=== PATIENT | female | born 1995 | race Caucasian/White ===

== ENCOUNTER 2016-07-09 16:40 | Outpatient (CLI) | payer OTHER ==
[~2016-07-09] VITALS: Ht 162.6 cm; Wt 62.9 kg
[2016-07-09 16:44] VITALS: Ht 162.6 cm; Wt 62.9 kg
[2016-07-09 16:55] VITALS: BP 113/65; PULSE 67; RESP 18
[2016-07-09] MEDS ORDERED: PRENAT PO (16:55)
--- NOTE | 2016-07-09 18:25 | CONS ---
Date/Time of Note Date/Time of Note DATE: 07/09/16 TIME: 18:15 Consultation Date/Type/Reason Admit Date/Time Initial Consult Date July 09, 2016 Triage consult Reason for Consultation This patient is a 21 years old 3 para 2 who had both her deliveries in the past by section her due date is July 18 which makes her 38 weeks and 5 days. Her main complaint is occasional abdominal back pain started about 3 hours ago 24 HR Interval Summary Free Text/Dictation On examination she is a well-developed well-nourished lady term with possible early labor and vital signs are normal blood pressure 113/65 , pulse rate 67, temperature 90 7. This patient was kept in the triage area for about an hour to rule out possible early labor, however due to increased contractions we will keep her here in case of active contraction she will have her repeat section She had her lunch at 2:00 in the afternoon today. Constitutional: No chills, No diaphoresis, No disoriented, No febrile, No improved, No no complaints, No other, No poor po, No requiring IVF, No requiring O2 Detailed Summary Eyes: No discharge, No no complaints, No other, No pain, No redness, No visual change ENT: No bleeding, No congestion, No discharge, No dysphagia, No no complaints, No other, No pain, No sore throat Respiratory: No cough, No no complaints, No other, No pain, No pleuritic pain, No shortness of breath, No sputum, No wheezing Cardiovascular: No chest pain, No edema, No lightheadedness, No no complaints, No orthopenea, No other, No palpitations, No paroxysmal nocturnal dyspnea Gastrointestinal: No blood, No constipation, No decreased appetite, No diarrhea , No flatus, No nausea, No no complaints, No other, No pain, No passing stool, No vomiting Genitourinary: other (uterine contractions. On pelvic exam cervix is soft closed in about 3-3-1/2 cm in length no evidence of ruptured membranes) Musculoskeletal: No back pain, No bone/joint pain, No neck pain, No no complaints, No other, No restricted range of motion, No swelling Skin: No bruising, No erythema, No laceration, No no complaints, No other, No pruritis, No rash, No skin lesions Endocrine: No dry skin, No no complaints, No other, No polydypsia, No polyuria , No temp intolerance Lymphatic: No adenopathy, No lymphadema, No no complaints, No other, No tender nodes Psychological: No anxiety, No confusion, No depression, No nl mood/affect, No no complaints, No other, No suicidal Immunologic: No immunodeficiency, No no complaints, No other, No pruritis, No rhinitis, No urticaria Additional Comments Plan: As mentioned we will keep her in the hospital and give her hydration if goes into active labor she will have a repeat section Exam/Review of Systems Vital Signs Vitals Vital Signs Date Time Temp Pulse Resp B/P Pulse Ox O2 Delivery O2 Flow Rate FiO2 07/09/16 16:55 97.9 67 18 113/65 Room Air Medications Medications Current Medications Lactated Ringer's 500 ml @ 500 mls/hr Q1H ONCE IV ; Start 07/09/16 at 18:30; Stop 07/09/16 at 19:29 Lactated Ringer's (Lr) 1,000 ml @ 125 mls/hr Q8H IV ; Start 07/09/16 at 18:30 ERASMO WHITTINGTON MD Jul 09, 2016 18:25 ERASMO WHITTINGTON MD Jul 09, 2016 18:25
[2016-07-09] MEDS ORDERED: LACTATED RINGER'S 1,000 ML IV SCH (18:30)
[2016-07-09] MEDS ORDERED: LACTATED RINGER'S 500 ML IV ONE (18:30)
--- NOTE | 2016-07-09 20:29 | QN ---
Documentation Comment Laborist 21yo at 38+5 by poor dating w/hx of C/S x2 who presented with painful UCs. In to see pt in Triage s/p IV Hydration. UCs have spaced considerably, approximately every 11-15 min, sometimes 20 min apart. Pt states they are less uncomfortable, now /10. SVE unchanged over 2+hrs (1715-> 1945): cl/long/high/posterior FHT reviewed and Category 1 w/baseline 120s, mod chris, +accels, no decels. Given unchanged cervical exam and spacing of UCs, unlikely pt is in labor. Will d/c pt home with continued outpatient follow-up- next appointment is scheduled on 07/11/16. Strict labor, ROM and FKC precautions reviewed Questions answered to patient's satisfaction LUIS SR MD Jul 09, 2016 20:29
--- NOTE | 2016-07-09 20:35 | TRIAGE ---
OB Triage Datetime Report Generated by CPN: 07/09/2016 20:35 Datetime: 07/09/2016 19:10 Stage of : OB Triage Labor Evaluation Frequency: 1-9 Monitor Mode: External Duration (sec)2399: 60-80 Quality: Moderate Pattern: Normal: <= 5 Contractions in 10 Minutes Resting Tone [place]: Non Relaxed Heart Rate FHR Baseline Rate: 135 Monitor Mode: External US Variability: Moderate 6-25 bpm Accelerations: 15X15 Decelerations: None Category: Category I Pain Assessment Pain Scale: 3 Pain Presence: Intermittent Pain Type: Cramping Pain Location: Abdomen Pain Relief Measures: Comfort Measures Datetime: 07/09/2016 18:38 Stage of : OB Triage Labor Evaluation Frequency: 1-1.5 Monitor Mode: External Duration (sec)2399: 60-80 Quality: Moderate Pattern: Normal: <= 5 Contractions in 10 Minutes Resting Tone [place]: Non Relaxed Heart Rate FHR Baseline Rate: 125 Monitor Mode: External US Variability: Minimal - Undetectable to <=5 bpm Accelerations: None Decelerations: None Category: Category II Pain Assessment Pain Scale: 3 Pain Presence: Intermittent Pain Type: Cramping Pain Location: Abdomen Pain Relief Measures: Comfort Measures Datetime: 07/09/2016 17:43 Labor Evaluation Frequency: 0 Monitor Mode: External Pattern: Normal: <= 5 Contractions in 10 Minutes Resting Tone [place]: Relaxed Heart Rate FHR Baseline Rate: 120 Monitor Mode: External US FHR Baseline Changes: No Baseline Change Variability: Moderate 6-25 bpm Accelerations: 15X15 Decelerations: None Category: Category I Datetime: 07/09/2016 17:35 Contraction Comments: TOCO MONTOR PART CHANGED Datetime: 07/09/2016 17:14 Vaginal Exam Dilatation (cms): 0.0 Effacement (%): 40 Station: -3 Exam By: DR FOROOHAR Datetime: 07/09/2016 17:05 Labor Evaluation Frequency: X1 Monitor Mode: External Duration (sec)2399: 80 Quality: Moderate Pattern: Normal: <= 5 Contractions in 10 Minutes Resting Tone [place]: Relaxed Heart Rate FHR Baseline Rate: 125 Monitor Mode: External US Variability: Moderate 6-25 bpm Accelerations: 15X15 Decelerations: None Category: Category I Datetime: 07/09/2016 16:51 Stage of : OB Triage Assessment Type: Triage Maternal Assessment Level of Consciousness: Fully Conscious DTR's/Clonus: DTRs 2+; No Clonus Headache: Denies Blurred Vision: No Respiratory Effort: Unlabored; Regular Rhythm; Equal Expansion Breath Sounds, Left: Clear and Equal Breath Sounds, Right: Clear and Equal Nausea/Vomiting: Denies RUQ Epigastric Pain: Denies Lower Extremities Edema: None Upper Extremities Edema: None Facial Edema: None Temperature Route: Oral Fall Risk Assessment History of Falling: (0) No Secondary Diagnosis: (0) No Ambulatory Aid: (0) Bedrest/Nurse Assist IV Therapy: (0) No Gait: (0) Normal/Bedrest/Immobile Pain Assessment Pain Scale: 5 Pain Presence: Constant Pain Type: Pressure Pain Location: Abdomen; Back Datetime: 07/09/2016 16:50 EGA: 38.5 Datetime: 07/09/2016 16:48 Time of Arrival: 07/09/2016 16:40 Arrived By: Ambulatory Arrived From: Home Chief Complaint: ABDOMINAL AND BACK PAIN; Movement: Present Contractions: Occasional Time Contractions Began: 07/07/2016 19:00 Rupture of Membranes: Denies Vaginal Bleeding: None Vaginal Discharge: Denies Recent Sexual Intercouse: Denies Abdominal Trauma: Not Applicable Patient Complaints: Back Pain Additional Patient Complaints: LOWER ABDOMINAL PRESSURE Initial Plan: EFM, UC MONITORING, IV HYDRATION
== END 2016-07-09 20:07 | disposition home or self-care (01) ==
LOC: OBT 16:40 → L-D 16:41 → OBT 20:07
PROVIDERS: ATTEND Obstetrics & Gynecology
DX: O62.9 Abnormality of forces of labor, unspecified (principal); Z3A.38 38 weeks gestation of pregnancy
CPT/HCPCS: 36415; 96360; 96361; J7120; Z7500; G0463

== ENCOUNTER 2016-07-12 12:15 | Inpatient (IN) | payer OTHER ==
[~2016-07-12] VITALS: Ht 172.7 cm; Wt 62.5 kg
[~2016-07-12 12:15] MED LIST: PRENAT PO
[2016-07-12 12:21] VITALS: Ht 172.7 cm; Wt 62.5 kg
[2016-07-12] MEDS ORDERED: LACTATED RINGER'S 1,000 ML IV SCH (12:21)
[2016-07-12] MEDS ORDERED: MISOPROSTOL 200 MCG TAB PR PRN ×2 (12:30→18:30)
[2016-07-12] MEDS ORDERED: CARBOPROST 250 MCG INJ IM PRN ×2 (12:30→18:30)
[2016-07-12] MEDS ORDERED: OXYTOCIN 30 UNITS/LR 500 ML IV SCH (12:30)
[2016-07-12] MEDS ORDERED: METHYLERGONOVINE 0.2 MG INJ IM PRN ×2 (12:30→18:30)
[2016-07-12] MEDS ORDERED: OXYTOCIN 30 UNITS/LR 500 ML IV PRN ×2 (12:30→18:30)
[2016-07-12] MEDS ORDERED: CEFAZOLIN 2 GM/50 ML (PMX) 50 ML IV SCH (12:30)
[2016-07-12 12:52] LABS: ADD SCAN DIFF NO
[2016-07-12 13:01] LABS: BASOPHILS % 0.3 % (0.0-2.0); EOSINOPHILS % 0.2 % (0.0-7.0); HEMATOCRIT 33.5 % (37.0-47.0); HEMOGLOBIN 10.7 g/dl (12.0-16.0); LYMPHOCYTES % 19.4 % (15.0-51.0); MEAN CORPUSCULAR HGB CONC 31.9 g/dl (32.0-37.0); MEAN CORPUSCULAR VOLUME 81.5 fl (82.0-101.0); MEAN PLATELET VOLUME 10.9 fl (7.4-10.4); MONOCYTE # 0.5 10^3/ul (0.3-0.9); MONOCYTES % 4.9 % (0.0-11.0); NEUTROPHIL # 7.8 10^3/ul (1.6-7.5); PLATELET COUNT 269 10^3/UL (140-415); RED BLOOD COUNT 4.11 10^6/ul (4.20-5.40); RED CELL DISTRIBUTION WIDTH 13.9 % (11.5-14.5); WHITE BLOOD COUNT 10.4 10^3/ul (4.8-10.8)
[2016-07-12] MEDS ORDERED: ONDANSETRON 4 MG INJ IV STA (13:06)
[2016-07-12] MEDS ORDERED: LACTATED RINGER'S 1,000 ML IV ONE (13:25)
[2016-07-12] MEDS ORDERED: CITRIC ACID/NA CITRATE 30 ML CUP PO ONE ×2 (13:30)
[2016-07-12] MEDS ORDERED: ONDANSETRON 4 MG INJ IV ONE (13:30)
[2016-07-12 14:08] LABS: INR 0.92; PROTIME 12.4 Sec (12.2-14.2)
[2016-07-12 14:09] LABS: PARTIAL THROMBOPLASTIN TIME 26.6 Sec (25.0-35.0)
[2016-07-12] MEDS ORDERED: morphine SULFATE/PF (10 MG/10 ML) INJ ONE (14:37)
[2016-07-12] MEDS ORDERED: FENTAnyl 50 MCG/ML VIAL ONE (14:37)
[2016-07-12] MEDS ORDERED: METOCLOPRAMIDE 10 MG INJ ONE (14:50)
[2016-07-12] MEDS ORDERED: EPHEDrine SULFATE 50 MG/5 ML SYG ONE (14:56)
[2016-07-12] MEDS ORDERED: ONDANSETRON 4 MG INJ IV PRN (15:30)
[2016-07-12] MEDS ORDERED: NALOXONE (0.4 MG/ML) INJ IV PRN (15:30)
[2016-07-12] MEDS ORDERED: HYDROmorphONE 1 MG/ML SYG IV PRN ×2 (15:30)
[2016-07-12] MEDS ORDERED: DIPHENHYDRAMINE 50 MG INJ IV PRN (15:30)
[2016-07-12] MEDS ORDERED: PROCHLORPERAZINE 10 MG INJ IV PRN (15:30)
--- NOTE | 2016-07-12 16:34 | OPR ---
DATE OF OPERATION: 07/12/2016 PREOPERATIVE DIAGNOSES: 1. Intrauterine at 39 weeks and 1 day. 2. History of 2 previous sections. 3. Request for voluntary sterilization, bilateral tubal ligation at the time of section. POSTOPERATIVE DIAGNOSES: 1. Intrauterine at 39 weeks and 1 day. 2. History of 2 previous sections. 3. Request for voluntary sterilization, bilateral tubal ligation at the time of section. PROCEDURE: Repeat transverse low cervical section, bilateral tubal ligation. SURGEON: Niurka Rai MD [facility] ARTIST: Price ANESTHESIA: Spinal. ANESTHESIOLOGY: Dr. Semaj ESPINOSA: Live baby girl, Apgars 8 and 9. Baby weighed 2955 grams. DETAILS OF THE PROCEDURE: Under satisfactory spinal anesthesia, the patient was prepped and draped and placed in supine position, tilted to the left. Pfannenstiel incision was made. Old scar was re moved. Incision carried through the subcutaneous tissue. Bleeders brought under control with elect rocautery. Fascia incised to the length of the incision. Rectus muscle divided in midline. Perito neum exposed, entered through a transverse incision. Exploration of abdomen revealed a gravid uteru s at term, normal appearing tubes and ovaries, extremely thinned out lower segment of the uterus to the thickness of 1 to 2 mm only. Bladder flap was developed. Transverse incision was made in the l ower segment of the uterus. Amniotic sac ruptured. Clear amniotic fluid noted. Live baby girl was delivered from unengaged vertex. Nasal oropharyngeal suction was performed. Baby handed to the ne onatal team for immediate attention. Patient received 20 units of Pitocin. Placenta delivered manu ally intact. Uterine cavity cleaned with wet sponge and drainage established. Uterus closed in 2 l murphy using Monocryl #1 in continuous fashion. Bilateral tubal ligation performed by identifying th e fimbria and ampullar section of the right fallopian tube. Suture material used #0 plain catgut, w as reinforced with the same suture material. A portion of the tube including the ampulla and fimbri a excised, suture material used #0 plain catgut was reinforced with the same suture material and the specimen submitted to pathology. The same procedure performed for the opposite side. Peritoneal c avity irrigated with a copious amount of sterile water. Sponge, needle and instrument reported to b e correct. Abdominal peritoneum closed with 2-0 chromic catgut continuously. Rectus muscle approxi mated with 2 interrupted 2-0 chromic catgut. Fascia closed with #1 PDS in a continuous fashion. [place] bcutaneous tissue approximated with 2-0 chromic catgut. Skin closed with adolph. Estimated blood loss 600 to 700 mL. Urine bag contained 200 mL of clear urine. Patient tolerated procedure well, t ransferred to recovery room in a good condition. Dictated By: NIURKA FAULKNER/LATESHA Conf#: [id number] DID#: [id number]
--- NOTE | 2016-07-12 16:45 | HP ---
DATE OF ADMISSION: 07/12/2016 HISTORY OF PRESENT ILLNESS: This is a 21-year-old female, 3, para 2 with history o f previous , admitted to [facility] at 39 weeks and 1 day, being prepared to undergo a repeat . Patient had also requested voluntary sterilization, bilateral tuba l ligation at the time of the section. She has signed the consent and she has been business and financial counsel ed regarding the permanency and also the failure rate and increased risk of ectopic and fu ture failure to conceive. Knowing all the facts, the patient would like to proceed with the tubal l igation at the time of her section. This patient has been under the care of the [facility] and her course was not complicated with gestational diabetes, pregnan cy-induced hypertension or any other serious surgical or medical and genetic condition. GYNECOLOGIC HISTORY: Menarche at age 11, regular period. History of a total of 3 pregnancies inclu ding the present, 2 previous sections. PAST MEDICAL HISTORY: No other hospitalization for any other serious surgical or medical condition. ALLERGIES: DENIES ALLERGY TO ANY KNOWN MEDICATION. SOCIAL HABITS: Denies smoking or drinking. REVIEW OF SYSTEMS: Within normal. PHYSICAL EXAMINATION: VITAL SIGNS: She is 5 feet 8 inches, 138 pounds. Total weight gain of the 23 pounds with blood pressure of 106/62, pulse of 65, respiration 18 and temperature 98. HEAD, EARS, NOSE AND THROAT: Negative. NECK: Supple. No thyromegaly. LUNGS: Clear to P and A. HEART: Normal sinus rhythm, no murmur. BREASTS: Status compatible with state of the . No abnormal palpable mass. No nipple retr action or discharge. No axillary adenopathy, no supraclavicular adenopathy. ABDOMEN: Measures 37 cm from symphysis pubis. heart rate category 1. PELVIC: Deferred. EXTREMITIES: No edema, no varicosities. IMPRESSION: 1. Intrauterine at 39 weeks' gestation. 2. History of previous section. 3. Request for bilateral tubal ligation. The patient is aware of the complication of the surgery, including bowel or bladder injury, infectio n, hemorrhage, hematoma, failure rate of tubal ligation, increased risk of ectopic , future failure to conceive. Knowing all these facts, the patient would like to proceed with the repeat C- section and bilateral tubal ligation. Dictated By: NIURKA FAULKNER/LATESHA Conf#: [id number] DID#: [id number]
[2016-07-12] MEDS: KETOROLAC 30 MG INJ IV PRN (17:09)
[2016-07-12] MEDS: OXYTOCIN 30 UNITS/LR 500 ML IV SCH ×2 (18:17→22:40)
[2016-07-12 18:20] VITALS: BP 110/60; PULSE 72
[2016-07-12] MEDS ORDERED: ACETAMINOPHEN/CODEINE #3 TAB PO PRN ×2 (18:30)
[2016-07-12] MEDS ORDERED: LANOLIN 7 GM TUBE TOP PRN (18:30)
[2016-07-12] MEDS ORDERED: OXYCODONE/ACETAMINOPHEN (5/325) TAB PO PRN ×2 (18:30)
[2016-07-12] MEDS ORDERED: CEFAZOLIN 1 GM/50 ML (PMX) 50 ML IVPB SCH (18:30)
[2016-07-12 19:00] VITALS: BP 117/79; PULSE 69; RESP 18
[2016-07-12 20:00] VITALS: BP 119/64; PULSE 75; RESP 20
[2016-07-12] MEDS: SENNA/DOCUSATE NA (8.6MG/50MG) TAB PO SCH (21:00)
[2016-07-13] MEDS: OXYTOCIN 30 UNITS/LR 500 ML IV SCH ×2 (02:17→06:17)
[2016-07-13 03:53] VITALS: BP 111/62; PULSE 75; RESP 20
[2016-07-13 07:41] LABS: ADD SCAN DIFF NO
[2016-07-13 07:45] VITALS: BP 116/66; PULSE 78; RESP 18
[2016-07-13 07:48] LABS: BASOPHILS % 0.1 % (0.0-2.0); EOSINOPHILS % 0.1 % (0.0-7.0); HEMOGLOBIN 8.8 g/dl (12.0-16.0); LYMPHOCYTES # 1.4 10^3/ul (0.8-2.9); LYMPHOCYTES % 15.8 % (15.0-51.0); MEAN CORPUSCULAR HEMOGLOBIN 25.7 pg (29.0-33.0); MEAN CORPUSCULAR HGB CONC 31.4 g/dl (32.0-37.0); MEAN CORPUSCULAR VOLUME 81.6 fl (82.0-101.0); MEAN PLATELET VOLUME 11.3 fl (7.4-10.4); MONOCYTE # 0.6 10^3/ul (0.3-0.9); MONOCYTES % 6.3 % (0.0-11.0); NEUTROPHILS % 77.4 % (39.0-77.0); PLATELET COUNT 208 10^3/UL (140-415); RED BLOOD COUNT 3.43 10^6/ul (4.20-5.40); RED CELL DISTRIBUTION WIDTH 14.1 % (11.5-14.5)
[2016-07-13] MEDS: SENNA/DOCUSATE NA (8.6MG/50MG) TAB PO SCH ×2 (09:22→21:28)
[2016-07-13] MEDS ORDERED: LACTATED RINGER'S 1,000 ML IV ONE (10:30)
--- NOTE | 2016-07-13 11:39 | PN ---
Date/Time of Note Date/Time of Note DATE: 07/13/16 TIME: 11:38 OB Subjective Subjective Subjective Post day 1 Afebrile vital signs stable, abdomen soft, uterus firm, lochia normal, bowel sounds present, ambulation recommended Laboratory Tests Test 07/12/16 12:30 07/12/16 13:25 07/13/16 07:00 Basophils # 0.010^3/ul 0.010^3/ul Basophils % 0.3% 0.1% Eosinophils # 0.010^3/ul 0.010^3/ul Eosinophils % 0.2% 0.1% HIV (1&2) Antibody NEGATIVE Hematocrit 33.5% 28.0% Hemoglobin 10.7g/dl 8.8g/dl Hepatitis B Surface Antigen NEGATIVE Lymphocytes # 2.010^3/ul 1.410^3/ul Lymphocytes % 19.4% 15.8% Mean Corpuscular Hemoglobin 26.0pg 25.7pg Mean Corpuscular Hemoglobin Concent 31.9g/dl 31.4g/dl Mean Corpuscular Volume 81.5fl 81.6fl Mean Platelet Volume 10.9fl 11.3fl Monocytes # 0.510^3/ul 0.610^3/ul Monocytes % 4.9% 6.3% Neutrophils # 7.810^3/ul 7.010^3/ul Neutrophils % 75.0% 77.4% Nucleated Red Blood Cells # 0.010^3/ul 0.010^3/ul Nucleated Red Blood Cells % 0.0/100WBC 0.0/100WBC Platelet Count 51625^3/UL 61529^3/UL Rapid Plasma Reagin NONREACTIVE Red Blood Count 4.1110^6/ul 3.4310^6/ul Red Cell Distribution Width 13.9% 14.1% White Blood Count 10.410^3/ul 9.010^3/ul Activated Partial Thromboplast Time 26.6Sec INR International Normalized Ratio 0.92 Prothrombin Time 12.4Sec Prothrombin Time Ratio 1.0 Current Medications Medications (Trade) Dose Ordered Sig/Chucky Route PRN Reason Start Time Stop Time Status Last Admin Dose Admin Lactated Ringer's 1,000 ml @ 125 mls/hr Q8H IV 07/12/16 12:21 07/12/16 18:20 DC 07/12/16 12:31 Cefazolin Sodium/ Dextrose 50 ml @ 100 mls/hr ONCE IV 07/12/16 12:30 07/12/16 18:20 DC Oxytocin/Lactated Ringer's 500 ml @ 125 mls/hr ONCE IV 07/12/16 12:30 07/12/16 18:20 DC 07/12/16 17:16 Oxytocin/Lactated Ringer's 500 ml @ 0 mls/hr ONCE PRN IV For Hemorrhage Management 07/12/16 12:30 07/12/16 18:20 DC Methylergonovine Maleate (Methergine) 0.2 mg ONCE PRN IM VAGINAL BLEEDING 07/12/16 12:30 07/12/16 18:20 DC Carboprost Tromethamine (Hemabate) 250 mcg ONCE PRN IM VAGINAL BLEEDING 07/12/16 12:30 07/12/16 18:20 DC Misoprostol (Cytotec) 1,000 mcg ONCE PRN [place] VAGINAL BLEEDING 07/12/16 12:30 07/12/16 18:20 DC Ondansetron HCl (Zofran Inj) 4 mg ONCE STAT IV 07/12/16 13:06 07/12/16 13:11 DC 07/12/16 13:27 Citric Acid/ Sodium Citrate 30 ml 30 ml ONCE ONCE PO 07/12/16 13:30 07/12/16 13:31 DC 07/12/16 13:27 Lactated Ringer's (Lr) 1,000 ml @ 1,000 mls/hr Q1H ONCE IV 07/12/16 13:25 07/12/16 14:24 DC Ondansetron HCl (Zofran Inj) 4 mg pre-procedure ONCE IV 07/12/16 13:30 07/12/16 13:31 DC Citric Acid/ Sodium Citrate (Bicitra) 30 ml pre-procedure ONCE PO 07/12/16 13:30 07/12/16 13:31 DC Fentanyl (Sublimaze) 100 mcg STK-MED ONCE .ROUTE 07/12/16 14:37 07/12/16 14:38 DC Morphine Sulfate (Duramorph) 10 mg STK-MED ONCE .ROUTE 07/12/16 14:37 07/12/16 14:38 DC Metoclopramide HCl (Reglan) 10 mg STK-MED ONCE .ROUTE 07/12/16 14:50 07/12/16 14:51 DC Ephedrine Sulfate 50 mg STK-MED ONCE .ROUTE 07/12/16 14:56 07/12/16 14:57 DC Naloxone HCl (Narcan) 0.1 mg Q2M PRN IV FOR RESP RATE 8 OR LESS 07/12/16 15:30 07/13/16 15:29 Ketorolac Tromethamine (Toradol) 30 mg Q6H PRN IV PAIN 07/12/16 15:30 07/13/16 15:29 07/12/16 17:09 Hydromorphone HCl (Dilaudid) 0.2 mg Q3H PRN IV PAIN LEVEL 1-5 07/12/16 15:30 07/13/16 15:29 Hydromorphone HCl (Dilaudid) 0.4 mg Q3H PRN IV PAIN LEVEL 6-10 07/12/16 15:30 07/13/16 15:29 Diphenhydramine HCl (Benadryl) 25 mg Q6H PRN IV ITCHING 07/12/16 15:30 07/13/16 15:29 Ondansetron HCl (Zofran Inj) 4 mg Q6H PRN IV NAUSEA AND/OR VOMITING 07/12/16 15:30 07/13/16 15:29 Prochlorperazine (Compazine Inj) 10 mg ONCE PRN IV NAUSEA AND/OR VOMITING 07/12/16 15:30 07/13/16 15:29 Miscellaneous Information (* Miscellaneous Pharmacy Order) Duramorph: 0.2 mg Spi... GIVEN XX 07/12/16 15:30 07/12/16 18:20 DC Acetaminophen/ Codeine Phosphate (Tylenol No.3) 1 tab Q4H PRN PO PAIN LEVEL 4-6 07/12/16 18:30 Acetaminophen/ Codeine Phosphate (Tylenol No.3) 2 tab Q4H PRN PO PAIN LEVEL 7-10 07/12/16 18:30 Oxycodone/ Acetaminophen (Percocet (5/ 325)) 1 tab Q4H PRN PO PAIN LEVEL 4-6 07/12/16 18:30 Oxycodone/ Acetaminophen (Percocet (5/ 325)) 2 tab Q4H PRN PO PAIN LEVEL 7-10 07/12/16 18:30 Ibuprofen (Motrin) 600 mg Q6 PO 07/13/16 18:00 Simethicone (Mylicon) 160 mg Q8H PRN PO DISTENSION/GAS/BLOATING 07/12/16 18:30 Senna/Docusate Sodium (Senokot-S) 1 tab BID PO 07/12/16 21:00 07/13/16 09:22 Lanolin (Dfl-A-Qjecdj) 1 applic BEDSIDE MEDICATION PRN TOP BEDSIDE FOR TALA TO NIPPLES 07/12/16 18:30 Diphtheria/ Tetanus/Acell Pertussis 0.5 ml 0.5 ml ONCE ONCE IM* 07/15/16 09:00 07/15/16 09:01 Oxytocin/Lactated Ringer's 500 ml @ 0 mls/hr ONCE PRN IV For Hemorrhage Management 07/12/16 18:30 Methylergonovine Maleate (Methergine) 0.2 mg ONCE PRN IM VAGINAL BLEEDING 07/12/16 18:30 Carboprost Tromethamine (Hemabate) 250 mcg ONCE PRN IM VAGINAL BLEEDING 07/12/16 18:30 Misoprostol 1000 mcg 1,000 mcg ONCE PRN [place] VAGINAL BLEEDING 07/12/16 18:30 Cefazolin Sodium 50 ml @ 100 mls/hr ONCE IVPB 07/12/16 18:30 07/12/16 18:59 DC 07/12/16 21:10 Oxytocin/Lactated Ringer's 500 ml @ 125 mls/hr Q4H IV 07/12/16 18:17 07/13/16 10:33 DC 07/12/16 22:40 Lactated Ringer's (Lr) 1,000 ml @ 125 mls/hr Q8H ONCE IV 07/13/16 10:30 07/13/16 18:29 NIURKA AJ MD Jul 13, 2016 11:39
[2016-07-13 12:00] VITALS: BP 109/56; PULSE 76; RESP 20
[2016-07-13] MEDS: KETOROLAC 30 MG INJ IV PRN (12:55)
[2016-07-13 16:00] VITALS: BP 102/56; PULSE 70; RESP 18
[2016-07-13] MEDS: IBUPROFEN 600 MG TAB PO SCH (18:20)
[2016-07-13 20:00] VITALS: BP 108/58; PULSE 79; RESP 20
[2016-07-14] MEDS: IBUPROFEN 600 MG TAB PO SCH ×5 (00:20→23:54)
[2016-07-14 04:45] VITALS: BP 102/57; PULSE 73; RESP 20
[2016-07-14 07:30] VITALS: BP 112/52; PULSE 61; RESP 18
[2016-07-14] MEDS: SENNA/DOCUSATE NA (8.6MG/50MG) TAB PO SCH ×2 (09:55→21:52)
--- NOTE | 2016-07-14 11:41 | PN ---
Date/Time of Note Date/Time of Note DATE: 07/14/16 TIME: 11:40 OB Subjective Subjective Subjective Post day 2, Abdomen soft, afebrile, lochia normal, incision dry, bowel sounds present, no bowel movement, extremity normal. NIURKA AJ MD Jul 14, 2016 11:41
[2016-07-14] MEDS ORDERED: NA PHOSPHATE/BIPHOS 133 ML ENEMA PR ONE (12:00)
[2016-07-14 15:30] VITALS: BP 107/62; PULSE 68; RESP 18
[2016-07-14 20:40] VITALS: BP 113/64; PULSE 70; RESP 18
[2016-07-15 04:00] VITALS: BP 101/58; PULSE 67; RESP 17
[2016-07-15] MEDS: IBUPROFEN 600 MG TAB PO SCH ×2 (05:33→11:32)
[2016-07-15 07:50] VITALS: BP 108/66; PULSE 70; RESP 18
[2016-07-15] MEDS ORDERED: DIPHTH/TET/ACEL PERTUSS (ADULT) 0.5 ML VIAL IM* ONE (09:00)
[2016-07-15] MEDS: SENNA/DOCUSATE NA (8.6MG/50MG) TAB PO SCH (09:36)
--- NOTE | 2016-07-15 12:37 | PD.PPDC ---
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
--- NOTE | 2016-07-15 12:43 | DS ---
Date/Time of Note Date/Time of Note DATE: 07/15/16 TIME: 12:38 Obstetrical Discharge Record Final Diagnosis Final Diagnosis: Term delivered Section Section: Repeat Condition on Discharge Physical Assessment Last Vitals: Post day 3 This is a 21 years old female underwent a repeat with bilateral tubal ligation she has a history of 2 previous and she signed the consent for tubal ligation underwent above-mentioned surgeries postoperative course in the hospital uneventful did not spike temp or having problem with bowel function on the third postoperative day incision inspected seems healing well no sign of inflammation adolph in place patient discharged home with the recommendation to DC. adolph in 4 days at the clinic. Voiding: Yes Bowel Movement: Yes Fundus: Firm Abdomen and Incision: Incision dry healing well no sign of inflammation. Calf Tenderness: No Patient Condition: Good NIURKA AJ MD Jul 15, 2016 12:43
[2016-07-16 19:54] LABS: RUBELLA ANTIBODY - IGG 1.02
== END 2016-07-15 16:38 | disposition home or self-care (01) | DRG 766 ==
LOC: L-D 12:15 → PP1 18:07 → EDSTATUS 07-18 12:14
PROVIDERS: ADMIT Obstetrics & Gynecology; ATTEND Obstetrics & Gynecology
PROC: 0UL70ZZ Occlusion of Bilateral Fallopian Tubes, Open Approach (ICD-10-PCS; 2016-07-12)
PROC: 10D00Z1 Extraction of Products of Conception, Low, Open Approach (ICD-10-PCS; principal; 2016-07-12 15:30)
DX: O34.211 Maternal care for low transverse scar from previous cesarean delivery (principal); Z30.2 Encounter for sterilization; Z3A.39 39 weeks gestation of pregnancy; Z37.0 Single live birth
CPT/HCPCS: 85025; 85610; 85730; 86592; 86703; 86762; 86850; 86900; 86901; 87340; 88302; 90715; 99464; J0690; J1885; J2274; J2405; J2590; J2765; J3010; J7120